=== PATIENT | male | born 1985 | race Caucasian/White ===

== ENCOUNTER 2024-12-30 19:12 | Emergency (ER) | payer BC ==
[~2024-12-30] VITALS: Ht 188 cm; Wt 106.6 kg
[2024-12-30 19:55] LABS: PLATELET COUNT (AUTO) 299 K/uL (150-450); RED BLOOD CELL COUNT(AUTO) 4.76 MIL/uL (4.5-6.0); RED CELL DISTRIBUTION WIDTH 12.8 % (11.5-15.0); WHITE BLOOD COUNT (AUTO) 7.3 K/uL (4.3-11.0)
[2024-12-30 20:04] LABS: CALCIUM, SERUM 8.8 mg/dL (8.5-10.1); CREATININE 1.1 mg/dL (0.6-1.3); SODIUM SERUM 139 mmol/L (136-145); UREA NITROGEN, BLOOD 19 mg/dL (7-18)
[2024-12-30 20:09] LABS: CREATINE KINASE, TOTAL 411 U/L (39-308)
[2024-12-30] MEDS ORDERED: KETOROLAC TROMETHAMINE 15 MG/ML VIAL ONE (20:36)
[2024-12-30] MEDS: IV NS 0.9% 1,000 ML BAG IV ONE (20:40)
[2024-12-30] MEDS: KETOROLAC TROMETHAMINE 15 MG/ML VIAL IV ONE (20:40)
[2024-12-30] MEDS ORDERED: IBUP-1490 PO (22:01)
[2024-12-30] MEDS ORDERED: CYCL5TAB PO (22:01)
[2024-12-30 22:53] VITALS: BP 136/86; TEMP 98; O2SAT 97
[2024-12-30] MEDS ORDERED: oxyCODONE/APAP (5/325 MG) 1 UDTAB TABLET ONE (23:09)
[2024-12-30] MEDS ORDERED: KETO10TA2 PO (23:09)
[2024-12-30] MEDS ORDERED: CYCL10TA9 PO (23:09)
[2024-12-30] MEDS ORDERED: CYCLOBENZAPRINE 10 MG TABLET ONE (23:10)
[2024-12-30] MEDS: CYCLOBENZAPRINE 10 MG TABLET PO ONE (23:16)
[2024-12-30] MEDS: oxyCODONE/APAP (5/325 MG) 1 UDTAB TABLET PO ONE (23:16)
== END 2024-12-30 23:16 | disposition home or self-care (01) ==
LOC: ER 19:25
DX: T75.4XXA Electrocution, initial encounter (principal); R00.1 Bradycardia, unspecified; W86.8XXA Exposure to other electric current, initial encounter; Y93.89 Activity, other specified; Y92.89 Other specified places as the place of occurrence of the external cause; Y99.8 Other external cause status
CPT/HCPCS: 99285; 96374; 71045; 96361; 93005 ×2; 85025; 80048; 82550; 83735; 36415; 84484 ×2; 82553; J1885